=== PATIENT | female | born 1980 | race African-American/Black ===

== ENCOUNTER 2020-06-10 10:54 | Emergency (ER) | payer BC, MEDICAID ==
[~2020-06-10] VITALS: Ht 160 cm; Wt 61.0 kg
[2020-06-10 10:58] VITALS: BP 122/70
== END 2020-06-10 12:43 | disposition home or self-care (01) ==
LOC: ER 10:54
DX: J06.9 Acute upper respiratory infection, unspecified (principal)
CPT/HCPCS: 99282

== ENCOUNTER 2022-04-09 17:57 | Emergency (ER) | payer BC, MEDICAID ==
[~2022-04-09] VITALS: Ht 160 cm; Wt 72.0 kg
[2022-04-09 23:40] VITALS: BP 125/75
== END 2022-04-09 23:42 | disposition home or self-care (01) ==
LOC: ER 17:57
DX: T74.01XA Adult neglect or abandonment, confirmed, initial encounter (principal); Y07.03 Male partner, perpetrator of maltreatment and neglect
CPT/HCPCS: 81025; 99282

== ENCOUNTER 2022-05-16 08:46 | Emergency (ER) | payer MEDICARE, BC ==
[~2022-05-16] VITALS: Ht 160 cm; Wt 62.0 kg
[2022-05-16 09:44] LABS: CHLORIDE 101 mEq/L (98-107)
[2022-05-16 09:48] LABS: BASOPHILS % 0.2 % (0.0-2.0); EOSINOPHILS % 0.5 % (0.0-5.0); HEMATOCRIT. 37.8 % (36.0-48.0); HEMOGLOBIN. 12.3 g/dL (12.0-16.0); LYMPHOCYTES % 20.3 % (20.0-50.0); MEAN CORPUSCULAR HEMOGLOBIN 26.2 pg (28.0-32.0); MEAN CORPUSCULAR VOLUME 80.4 fL (81.0-99.0); MONOCYTES % 8.5 % (2.0-8.0); NEUTROPHILS % 70.5 % (40.0-76.0); PLATELET 314 x1000/uL (130-400); RED CELL DISTRIBUTION WIDTH 14.6 % (11.6-14.6)
[2022-05-16] MEDS ORDERED: POTASSIUM CHLORIDE 20MEQ TABLET SR PO NR (10:15)
[2022-05-16] MEDS ORDERED: POTA-79 MT (10:39)
[2022-05-16 11:08] VITALS: BP 104/69
== END 2022-05-16 10:51 | disposition home or self-care (01) ==
LOC: ER 09:00
DX: R19.7 Diarrhea, unspecified (principal); E87.6 Hypokalemia
CPT/HCPCS: 36415; 80053; 81025; 85025; 93005; 99284

== ENCOUNTER 2022-12-30 10:17 | Emergency (ER) | payer MEDICARE ==
[~2022-12-30] VITALS: Ht 167.6 cm; Wt 63.6 kg
[~2022-12-30 10:17] MED LIST: POTA-354 MT
[2022-12-30 10:24] VITALS: BP 131/75
== END 2022-12-30 16:06 | disposition left against medical advice (07) ==
LOC: ER 10:17
DX: Z53.21 Procedure and treatment not carried out due to patient leaving prior to being seen by health care provider (principal)
CPT/HCPCS: 99281